=== PATIENT | male | born 1955 | race Two or more races ===

== ENCOUNTER 2025-06-02 07:07 | Outpatient (CLI) | payer OTHER | END 2025-06-02 07:13 | disposition home or self-care (01) | LOC: TOM 07:07 | PROVIDERS: ATTEND Internal Medicine Gastroenterology | DX: R19.5 Other fecal abnormalities (principal); Z79.02 Long term (current) use of antithrombotics/antiplatelets; Z79.82 Long term (current) use of aspirin; Z95.2 Presence of prosthetic heart valve ==